=== PATIENT | male | born 1990 | race Caucasian/White ===

== ENCOUNTER 2017-08-23 03:46 | Emergency (ER) | payer OTHER ==
[~2017-08-23] VITALS: Ht 167.6 cm; Wt 62.1 kg
[2017-08-23 06:04] VITALS: BP 125/74
== END 2017-08-23 06:04 | disposition home or self-care (01) ==
LOC: ED 03:46
DX: J02.9 Acute pharyngitis, unspecified (principal); H92.02 Otalgia, left ear
CPT/HCPCS: J1100; J1885